=== PATIENT | female | born 1985 | race Caucasian/White ===

== ENCOUNTER 2016-09-08 06:25 | Emergency (ER) | payer OTHER ==
[2016-09-08 06:36] VITALS: RESP 18
--- NOTE | 2016-09-08 06:40 | EDPHY ---
H & P Time Seen by Provider: 09/08/16 06:40 HPI/ROS: CHIEF COMPLAINT: Nausea and vomiting HISTORY OF PRESENT ILLNESS: Patient is been sick since early this morning. She has similar symptoms on Wednesday but she attributes that to drinking alcohol all day. Her battery in her glucose meter has been , so she has not checked her glucose in about the last 3 weeks. Patient presents today with moderate nausea and vomiting. No bladder at coffee grounds in the emesis. Associated with a mild headache but not with abdominal pain urinary symptoms or vaginal discharge or bleeding. REVIEW OF SYSTEMS: Eye: no change in vision ENT: no sore throat Cardiac: no chest pain or syncope Pulmonary: no cough or SOB Abdomen: HPI, no diarrhea Musculoskeletal: no back pain Skin: no rash Neuro: HPI Constitutional: no fever : no urinary symptoms A comprehensive 10 point review of systems is otherwise negative aside from elements mentioned in the history of present illness. PAST MEDICAL HISTORY: Type 1 diabetes Social history: Alcohol this weekend on Wednesday and she was in [place]. Moved to [place] about a year ago and did see a primary care physician a month ago but can't remember name. Has an appointment with an head of training and development this coming Wednesday. General Appearance: Alert and conversant, cooperative. Eyes: No scleral icterus. ENT, Mouth: Slightly dry Respiratory: Normal respiratory effort, breath sounds equal, lungs are clear to auscultation. Cardiovascular: Regular rate and rhythm. Gastrointestinal: Abdomen is soft and non tender. Neurological: Alert and oriented x3. Normally conversant. Face symmetric, normal movement and sensation in all extremities. Skin: Warm and dry, no rashes. Musculoskeletal: No peripheral edema and no joint swelling. Psychiatric: Not agitated. Emergency Department course/MDM: Plan for normal saline 2 L and Zofran 4 mg IV for nausea and vomiting, check electrolytes and venous pH. 727: Labs reviewed, patient is not in ketoacidosis. Glucose is 75. No UTI. Plan for IV hydration, and follow up with her head of training and development this Wednesday. Results discussed at this time, plan for IV hydration, discharge with Zofran ODT of able to take oral fluids in the emergency department, she will get a new battery for glucose meter and follow up with her head of training and development this Wednesday Dr. Peña from [facility]. Smoking Status: Never smoked Constitutional: Initial Vital Signs Temperature (C) 37.3 C 09/08/16 06:32 Heart Rate 92 09/08/16 06:32 Respiratory Rate 18 09/08/16 06:32 Blood Pressure 110/65 09/08/16 06:32 O2 Sat (%) 98 09/08/16 06:32 O2 Delivery Mode Room Air Allergies/Adverse Reactions: No Known Allergies Allergy (Unverified 09/08/16 06:36) Home Medications: Medication Instructions Recorded Humalog 09/08/16 Lantus 100 UNITS/ML (*) 09/08/16 Ondansetron Odt [Zofran Odt] 4 mg PO Q4PRN #6 tab 09/08/16 Medical Decision Making Differential Diagnosis: Differential considered including but not limited to food related, viral gastroenteritis, metabolic such as diabetic ketoacidosis, appendicitis or ectopic - Data Points Laboratory Results: Laboratory Results 09/08/16 06:51 09/08/16 06:51 09/08/16 09/08/16 09/08/16 06:54 06:51 06:51 WBC RBC Hgb Hct MCV MCH MCHC RDW Plt Count MPV Neut % (Auto) Lymph % (Auto) [place] % (Auto) Eos % (Auto) Baso % (Auto) Nucleat RBC Rel Count Absolute Neuts (auto) Absolute Lymphs (auto) Absolute Monos (auto) Absolute Eos (auto) Absolute Basos (auto) Absolute Nucleated RBC Immature Gran % Immature Gran # VBG pH 7.39 (7.31-7.42) Sodium Potassium Chloride Carbon Dioxide Anion Gap BUN Creatinine Estimated GFR Glucose Calcium Beta HCG, Qual NEGATIVE Urine Color YELLOW Urine Appearance CLEAR Urine pH 7.0 (5.0-7.5) Ur Specific [place] 1.015 (1.002-1.030) Urine Protein NEGATIVE (NEGATIVE) Urine Ketones NEGATIVE (NEGATIVE) Urine Blood NEGATIVE (NEGATIVE) Urine Nitrate NEGATIVE (NEGATIVE) Urine Bilirubin NEGATIVE (NEGATIVE) Urine Urobilinogen NEGATIVE EU EU (0.2-1.0) Ur Leukocyte Esterase NEGATIVE (NEGATIVE) Urine Glucose NEGATIVE (NEGATIVE) 09/08/16 09/08/16 06:51 06:51 WBC 10.94 10^3/uL H 10^3/uL (3.80-9.50) RBC 4.37 10^6/uL 10^6/uL (4.18-5.33) Hgb 13.9 g/dL g/dL (12.6-16.3) Hct 40.4 % % (38.0-47.0) MCV 92.4 fL fL (81.5-99.8) MCH 31.8 pg pg (27.9-34.1) MCHC 34.4 g/dL g/dL (32.4-36.7) RDW 12.1 % % (11.5-15.2) Plt Count 226 10^3/uL 10^3/uL (150-400) MPV 10.4 fL fL (8.7-11.7) Neut % (Auto) 90.5 % H % (39.3-74.2) Lymph % (Auto) 5.0 % L % (15.0-45.0) [place] % (Auto) 3.2 % L % (4.5-13.0) Eos % (Auto) 0.7 % % (0.6-7.6) Baso % (Auto) 0.2 % L % (0.3-1.7) Nucleat RBC Rel Count 0.0 % % (0.0-0.2) Absolute Neuts (auto) 9.90 10^3/uL H 10^3/uL (1.70-6.50) Absolute Lymphs (auto) 0.55 10^3/uL L 10^3/uL (1.00-3.00) Absolute Monos (auto) 0.35 10^3/uL 10^3/uL (0.30-0.80) Absolute Eos (auto) 0.08 10^3/uL 10^3/uL (0.03-0.40) Absolute Basos (auto) 0.02 10^3/uL 10^3/uL (0.02-0.10) Absolute Nucleated RBC 0.00 10^3/uL 10^3/uL (0-0.01) Immature Gran % 0.4 % % (0.0-1.1) Immature Gran # 0.04 10^3/uL 10^3/uL (0.00-0.10) VBG pH Sodium 142 mEq/L mEq/L (134-144) Potassium 4.0 mEq/L mEq/L (3.5-5.2) Chloride 106 mEq/L mEq/L (97-110) Carbon Dioxide 23 mEq/l mEq/l (22-31) Anion Gap 13 mEq/L mEq/L (8-16) BUN 10 mg/dL mg/dL (7-23) Creatinine 0.8 mg/dL mg/dL (0.6-1.0) Estimated GFR > 60 Glucose 75 mg/dL mg/dL (70-100) Calcium 9.4 mg/dL mg/dL (8.5-10.4) Beta HCG, Qual Urine Color Urine Appearance Urine pH Ur Specific Bryant Urine Protein Urine Ketones Urine Blood Urine Nitrate Urine Bilirubin Urine Urobilinogen Ur Leukocyte Esterase Urine Glucose Medications Given: Discontinued Medications Sodium Chloride (Ns) 1,000 mls @ 0 mls/hr IV EDNOW ONE; Wide Open PRN Reason: Protocol Stop: 09/08/16 06:47 Last Admin: 09/08/16 06:52 Dose: 1,000 mls Sodium Chloride (Ns) 1,000 mls @ 0 mls/hr IV EDNOW ONE; Wide Open PRN Reason: Protocol Stop: 09/08/16 06:47 Last Admin: 09/08/16 07:28 Dose: 1,000 mls Ondansetron HCl (Zofran) 4 mg IVP EDNOW ONE Stop: 09/08/16 06:47 Last Admin: 09/08/16 06:52 Dose: 4 mg Departure - Departure Disposition: Home, Routine, Self-Care Clinical Impression: Dehydration Nausea & vomiting Qualifiers: Vomiting type: unspecified Vomiting Intractability: non-intractable Qualified Code(s): R11.2 - Nausea with vomiting, unspecified Condition: Good Instructions: Acute Nausea and Vomiting (ED) Referrals: INESSA WATKINS [Other] - As per Instructions ROMULO PEÑA [Retired Resigned] - As per Instructions (this Wednesday as scheduled) Prescriptions: Ondansetron Odt [Zofran Odt] 4 mg PO Q4PRN #6 tab
[2016-09-08] MEDS ORDERED: ONDANSETRON 4 MG/2 ML VIAL ONE (06:45)
[2016-09-08] MEDS ORDERED: NS 1,000 ML IV ONE ×2 (06:46)
[2016-09-08] MEDS ORDERED: ONDANSETRON 4 MG/2 ML VIAL IVP ONE ×2 (06:46→08:20)
[2016-09-08 07:08] LABS: % IMMATURE GRANULYOCYTES 0.4 % (0.0-1.1); ABSOLUTE IMMATURE GRANULOCYTES 0.04 10^3/uL (0.00-0.10); ADD DIFF? NO; ADD MORPH? NO; ADD SCAN? NO; ATYPICAL LYMPHOCYTE FLAG 0 (0-99); FRAGMENT RBC FLAG 0 (0-99); HEMATOCRIT 40.4 % (38.0-47.0); HEMOGLOBIN 13.9 g/dL (12.6-16.3); LEFT SHIFT FLG 0 (0-99); LIPEMIA HEMOLYSIS FLAG 90 (0-99); MEAN CELL HEMOGLOBIN 31.8 pg (27.9-34.1); MEAN CELL HEMOGLOBIN CONCENTR. 34.4 g/dL (32.4-36.7); MEAN CELL VOLUME 92.4 fL (81.5-99.8); MEAN PLATELET VOLUME 10.4 fL (8.7-11.7); PLATELET CLUMPS FLAG 0 (0-99); PLATELET COUNT 226 10^3/uL (150-400); RED BLOOD CELL COUNT 4.37 10^6/uL (4.18-5.33); RED CELL DISTRIBUTION WIDTH 12.1 % (11.5-15.2)
[2016-09-08 07:20] LABS: COLOR YELLOW; LEUKOCYTE ESTERASE,URINE NEGATIVE (NEGATIVE); NITRITE,URINE NEGATIVE (NEGATIVE)
[2016-09-08 07:25] LABS: ANION GAP 13 mEq/L (8-16); CALCIUM 9.4 mg/dL (8.5-10.4); CARBON DIOXIDE 23 mEq/l (22-31); CHLORIDE 106 mEq/L (97-110); CREATININE 0.8 mg/dL (0.6-1.0); GLOMERULAR FILTRATION RATE > 60; GLUCOSE 75 mg/dL (70-100); SODIUM 142 mEq/L (134-144)
[2016-09-08 09:03] VITALS: BP 115/70; PULSE 78; TEMP 99.7; O2SAT 95
== END 2016-09-08 09:04 | disposition home or self-care (01) ==
DX: R11.2 Nausea with vomiting, unspecified (principal); E86.9 Volume depletion, unspecified; E86.0 Dehydration; E11.9 Type 2 diabetes mellitus without complications
CPT/HCPCS: 96374; J2405

== ENCOUNTER 2016-09-08 19:40 | Emergency (ER) | payer OTHER ==
--- NOTE | 2016-09-08 20:18 | EDPHY ---
H & P Stated Complaint: seen earlier today, continues to have body aches - Personal History LMP (Females 10-55): 22-28 Days Ago Current Tetanus Diphtheria and Acellular Pertussis (TDAP): Yes - Medical/Surgical History Hx Asthma: No Hx Chronic Respiratory Disease: No Hx Diabetes: Yes Hx Cardiac Disease: No Hx Renal Disease: No Hx Cirrhosis: No Hx Alcoholism: No Hx HIV/AIDS: No Hx Splenectomy or Spleen Trauma: No Other PMH: dm 1 - Social History Smoking Status: Never smoked Time Seen by Provider: 09/08/16 20:17 Constitutional: Initial Vital Signs Temperature (C) 37.7 C 09/08/16 19:54 Heart Rate 20 L 09/08/16 19:54 Respiratory Rate 18 09/08/16 19:54 Blood Pressure 105/68 09/08/16 19:54 O2 Sat (%) 93 09/08/16 19:54 O2 Delivery Mode Room Air Allergies/Adverse Reactions: No Known Allergies Allergy (Unverified 09/08/16 06:36) Home Medications: Medication Instructions Recorded Humalog 09/08/16 Lantus 100 UNITS/ML (*) 09/08/16 Ondansetron Odt [Zofran Odt] 4 mg PO Q4PRN #6 tab 09/08/16 Medical Decision Making ED Course/Re-evaluation: CHIEF COMPLAINT: Body aches HISTORY OF PRESENT ILLNESS: The patient is a restless 31 y/o female with a history of Type I diabetes, who is complaining of body aches following her visit to the ED this morning. States she last felt normal yesterday. She was evaluated here in the ED for vomiting, and treated with Zofran prior to discharge. States her blood glucose was 75 in the morning and 215 before she came back to the ED tonight. She has not taken insulin since this morning. States the worst pain is in both hips. Her symptoms began after she returned home from the ED, and have not stopped since. Denies cough, dysuria, difficulty urinating, abrasions, lacerations, abdominal pain. REVIEW OF SYSTEMS: A 10 point review of systems was performed and is negative with the exception of the elements mentioned in the history of present illness. PHYSICAL EXAM: HR, BP, O2 Sat, RR. Temp noted General Appearance: Alert, well hydrated, appropriate, and restless and uncomfortable appearing. Head: Atraumatic without scalp tenderness or obvious injury Eyes: Pupils equal, round, reactive to light and accommodation, EOMI, no trauma , no injection. Nose: Atraumatic, no rhinorrhea, clear. Throat: Mucus membranes moist. Neck: Supple, nontender, no lymphadenopathy. Respiratory: No retractions, no distress, no wheezes, and no accessory muscle use. Lungs are clear to auscultation bilaterally. Cardiovascular: Regular rate and rhythm, no murmurs, rubs, or gallops. Good capillary refill all extremities. Gastrointestinal: Abdomen is soft, nontender, non-distended, no masses, no rebound, no guarding, no peritoneal signs. Musculoskeletal: Normal active ROM of all extremities, atraumatic. Neurological: Alert, appropriate, and interactive. Non-focal neuro. Skin: No rashes, good turgor, no nodules on palpation. Past medical history: Type 1 diabetes Past surgical history: Non-contributory Family history: Non-contributory Social history: Friend at bedside, moved to [place] one year ago, was in [place] this weekend. Prior ED report from this morning, 09/08/16, was reviewed. DIFFERENTIAL DIAGNOSIS: The differential diagnosis for the patient's myalgias included but was not limited to medication side effect, pneumonia, urinary tract infection, viral syndrome, meningitis, and sepsis. MEDICAL DECISION MAKING: The patient is a restless 31 y/o female who presents with body aches following her visit to the ED this morning. Her exam in un- remarkable. Plan on 1mg Ativan IV, 0.5mg Dilaudid IV, 30mg Ketorolac IV, 1L NS IV, and labs. 2100 Patient care signed out to Dr. Rodriguez, pending lab work. If normal patient will be discharged home with PCP for follow up. (Nick Montez) I assumed care of the patient at 9:[address] Montez. She is currently receiving IV fluids and has received Dilaudid and Ativan as well as ketorolac for her complaints of generalized myalgias and hip pain. Patient's laboratory evaluation is largely unremarkable. On re-examination she reports feeling improved. She and her real estate manager are concerned regarding the severity of the patient's pain when she presented. She was reassured that her symptoms have improved and that the laboratory evaluation is reassuring. Patient was discharged home with instructions regarding returning to the emergency department should her symptoms recur. She was discharged with information regarding regular doses of nonsteroidals as well as a short course of hydrocodone to use for severe discomfort. (Janice Rodriguez) - Data Points Laboratory Results: Laboratory Results 09/08/16 20:37 09/08/16 20:37 Microbiology Results: MICROBIOLOGY 09/08/16 20:47 Unspecified Urine Culture - Preliminary Two Williams Types Medications Given: Discontinued Medications Hydrocodone Bitart/Acetaminophen ([place] 5/325mg Prepack#6) 1 btl TAKEHOME EDNOW ONE Stop: 09/08/16 23:39 Last Admin: 09/09/16 00:02 Dose: 1 btl Hydromorphone HCl (Dilaudid) 0.5 mg IVP EDNOW ONE Stop: 09/08/16 20:26 Last Admin: 09/08/16 21:15 Dose: 0.5 mg Sodium Chloride (Ns) 1,000 mls @ 0 mls/hr IV ONCE ONE; Wide Open PRN Reason: Protocol Stop: 09/08/16 20:24 Last Admin: 09/08/16 21:19 Dose: 1,000 mls Ketorolac Tromethamine (Toradol) 30 mg IVP EDNOW ONE Stop: 09/08/16 20:26 Last Admin: 09/08/16 21:14 Dose: 30 mg Lorazepam (Ativan Injection) 1 mg IVP EDNOW ONE Stop: 09/08/16 20:26 Last Admin: 09/08/16 21:13 Dose: 1 mg Departure - Departure Disposition: Home, Routine, Self-Care Clinical Impression: Myalgia Diabetes Qualifiers: Diabetes mellitus type: type 1 Diabetes mellitus complication status: without complication Qualified Code(s): E10.9 - Type 1 diabetes mellitus without complications Condition: Good Instructions: Hydrocodone/Acetaminophen (By mouth), Musculoskeletal Pain (ED) Additional Instructions: Your prior symptoms may have been related to a medication reaction. They may also be related to a early developing viral syndrome. Please get plenty of rest over the next 24-48 hours and drink plenty of fluid. If you develop recurrent pain, please take ibuprofen 600 mg every 6-8 hours. You have also been given a prescription for hydrocodone to use for more severe discomfort. If you develop a high fever, vomiting, diarrhea, inability to walk, severe pain not relieved with the above treatments, we have other concerns, please return to the emergency department or seek care urgently. Please continue to treat your diabetes with insulin as previously as directed. Follow up with your PCP for continued symptoms. Referrals: NONE *PRIMARY CARE P,. [Primary Care Provider] - As per Instructions Varsha Lan MD [Medical Doctor] - As per Instructions Report Scribed for: Nick Montez Report Scribed by: Ale Holman Date of Report: 09/08/16 Time of Report: 20:18
[2016-09-08] MEDS ORDERED: NS 1,000 ML IV ONE (20:23)
[2016-09-08] MEDS ORDERED: LORazepam 2 MG/ML INJ IVP ONE (20:25)
[2016-09-08] MEDS ORDERED: KETOROLAC 30 MG/1 ML SDV IVP ONE (20:25)
[2016-09-08] MEDS ORDERED: HYDROmorphONE/DILAUDID 1 MG/ML SYR IVP ONE (20:25)
[2016-09-08 20:54] LABS: COLOR YELLOW; LEUKOCYTE ESTERASE,URINE NEGATIVE (NEGATIVE); NITRITE,URINE NEGATIVE (NEGATIVE)
[2016-09-08 20:55] LABS: % IMMATURE GRANULYOCYTES 0.6 % (0.0-1.1); ABSOLUTE IMMATURE GRANULOCYTES 0.04 10^3/uL (0.00-0.10); ADD DIFF? NO; ADD MORPH? NO; ADD SCAN? NO; ATYPICAL LYMPHOCYTE FLAG 20 (0-99); FRAGMENT RBC FLAG 10 (0-99); LEFT SHIFT FLG 0 (0-99); LIPEMIA HEMOLYSIS FLAG 90 (0-99); MEAN CELL HEMOGLOBIN 31.9 pg (27.9-34.1); MEAN CELL HEMOGLOBIN CONCENTR. 34.2 g/dL (32.4-36.7); MEAN CELL VOLUME 93.4 fL (81.5-99.8); MEAN PLATELET VOLUME 10.6 fL (8.7-11.7); PLATELET CLUMPS FLAG 10 (0-99); PLATELET COUNT 201 10^3/uL (150-400); RED BLOOD CELL COUNT 4.07 10^6/uL (4.18-5.33); RED CELL DISTRIBUTION WIDTH 12.2 % (11.5-15.2)
[2016-09-08 21:08] LABS: ALANINE AMINOTRANSFERASE 33 IU/L (9-52); ALBUMIN 3.6 g/dL (3.5-5.0); ALKALINE PHOSPHATASE 38 IU/L (38-126); ANION GAP 11 mEq/L (8-16); ASPARTATE AMINOTRANSFERASE 30 IU/L (14-46); BILIRUBIN,TOTAL 1.2 mg/dL (0.1-1.4); BILIRUBIN-CONJUGATED 0.2 mg/dL (0.0-0.5); CALCIUM 8.5 mg/dL (8.5-10.4); CARBON DIOXIDE 21 mEq/l (22-31); CHLORIDE 103 mEq/L (97-110); CREATININE 0.8 mg/dL (0.6-1.0); GLOMERULAR FILTRATION RATE > 60; GLUCOSE 173 mg/dL (70-100); POTASSIUM 3.7 mEq/L (3.5-5.2); SODIUM 135 mEq/L (134-144); TOTAL PROTEIN 6.4 g/dL (6.3-8.2)
[2016-09-08 22:05] LABS: MUCUS TRACE /lpf (NONE-1+)
[2016-09-08 22:09] LABS: RBC,URINE NONE SEEN /hpf (0-3); WBC,URINE NONE SEEN /hpf (0-3)
[2016-09-08] MEDS ORDERED: HYDROCOD/APAP 5/325 PREPACK#6 BTL TAKEHOME ONE (23:38)
[2016-09-09 00:07] VITALS: BP 105/59; PULSE 69; RESP 16; TEMP 99; O2SAT 96
== END 2016-09-09 00:08 | disposition home or self-care (01) ==
DX: M79.1 Myalgia (principal); E10.9 Type 1 diabetes mellitus without complications; E86.9 Volume depletion, unspecified
CPT/HCPCS: 96374; J1170; J1885; J2060